=== PATIENT | female | born 1980 | race Caucasian/White ===

== ENCOUNTER 2020-02-07 11:02 | Outpatient (RCR) | payer BC, SELFPAY ==
[2020-01-03 13:22] VITALS: BP 126/83; PULSE 94
[2020-01-10 11:27] VITALS: BP 119/80
[2020-01-17 13:51] VITALS: BP 119/86; PULSE 99
[2020-01-24 11:55] VITALS: BP 131/89; PULSE 95
[2020-01-31 13:01] VITALS: BP 130/80; PULSE 85
[2020-02-07 13:20] VITALS: BP 132/91; PULSE 85
== END 2020-03-08 09:57 | disposition home or self-care (01) ==
LOC: ANHOBOP 11:02
PROVIDERS: Visit Provider Obstetrics & Gynecology
DX: O69.89X0 Labor and delivery complicated by other cord complications, not applicable or unspecified (principal); Z3A.33 33 weeks gestation of pregnancy; Z3A.34 34 weeks gestation of pregnancy; Z3A.35 35 weeks gestation of pregnancy; Z3A.36 36 weeks gestation of pregnancy; Z3A.37 37 weeks gestation of pregnancy; Z3A.38 38 weeks gestation of pregnancy
CPT/HCPCS: 59025

== ENCOUNTER 2020-02-10 04:50 | Inpatient (IN) | payer BC, SELFPAY ==
[2020-02-10] VITALS (93 sets, daily range): BP systolic 74–161; BP diastolic 40–114; PULSE 64–119; RESP 17; TEMP 36.7–37.3; O2SAT 98–100; BMI 37.3
[2020-02-10 05:24] LABS: Basophils Percent Auto 0.3 % (0.2-1.2); Eosinophils Absolute Auto 0.1 K/mm3 (0-0.3); Hematocrit 30.4 % (37.0-47.0); Immature Granulocyte Absolute 0.04 K/mm3 (0.00-0.031); Immature Granulocyte Percent A 0.3 % (0-0.5); Lymphocytes Absolute Auto 2.13 K/mm3 (0.9-3.2); Lymphocytes Percent Auto 18.5 % (18.3-44.2); Mean Corpuscular HGB Conc 32.9 g/dl (32-36); Mean Corpuscular Hemoglobin 28.6 pg (26-34); Mean Corpuscular Volume 86.9 fl (80-100); Mean Platelet Volume 12.5 fl (7.4-10.4); Monocytes Absolute Auto 0.7 K/mm3 (0.1-0.6); Monocytes Percent Auto 6.1 % (2.6-8.5); Neutrophils Absolute Auto 8.5 K/mm3 (1.3-6.7); Neutrophils Percent Auto 73.8 % (45.5-73.1); Platelet Count Result 198 k/mm3 (150-375); White Blood Count 11.5 K/mm3 (4.5-10.0)
--- NOTE | 2020-02-10 05:33 | PM.IMHP ---
H&P: HPI History of Present Illness Date/Time: 02/10/20 05:33 Chief complaint: Induction of Labor Narrative: Bianca Blount is a 39 year old female G Héctor P3 1 0 3 whose last menstrual period was 05/13/2019 were EDC is 11 [id number] presents at 39 weeks gestation for induction of labor. She is negative for group B strep. Her has been complicated by a 2 vessel cord. Excellent growth has been seen with no abnormalities in her testing. Review of Systems Review of Systems: All systems reviewed & are unremarkable except as noted in HPI and below PMFSH Family History Family History Father Coronary stent patent Mother Chronic obstructive pulmonary disease Social History Social History Smoking status: Former smoker Substance use: never Spiritual care concerns: No Meds Home Medications and Allergies Home Medications Medication Instructions Recorded Confirmed Type prenat.vits,jarrod,[id number] 1 tablet PO DAILY 02/07/20 02/07/20 History [ #2] Allergies Allergy/AdvReac Type Severity Reaction Status Date / Time codeine AdvReac Unknown N&V Verified 02/07/20 11:36 Exam Const: General: no acute distress Eyes: General: appearance normal, both eyes and all related structures Neck: Neck: supple and no JVD Thyroid: thyroid normal Resp: Effort & Inspection: normal respiratory effort Auscultation: clear to auscultation bilaterally Cardio: Rate: regular rate Rhythm: regular rhythm GI: Inspection: non-distended GI Palp: Yes Soft to palpation, No Tenderness to palpation present (GI) and No Guarding due to palpation present (GI) Auscultation: normal bowel sounds : External Female Exam: normal external appearance Speculum Exam - Vagina: normal appearance of the vagina Speculum Exam - Cervix: normal appearance of the cervix ( Cervix 2/50/2. Attempted AROM no fluid. FHTs were reassuring) Skin: General skin exam: no rashes or lesions noted Extrem: General: normal to inspection and no edema Psych: Mental Status: mental status grossly normal Affect: normal affect H&P: Results Labs Labs: Short CBC 02/10/20 Range/Units 05:14 WBC 11.5 H (4.5-10.0) K/mm3 Hgb 10.0 L (12.0-15.0) g/dL Hct 30.4 L (37.0-47.0) % Plt Count 198 (150-375) k/mm3 Assessment and Plan Additional Plan impression: Term with 2 vessel cord Plan: Medical induction of labor. Spontaneous vaginal delivery is expected. She has an epidural candidate
[2020-02-10] MEDS: LACTATED RINGERS 1,000 ML 125 ML IV CONT ×2 (05:45→12:09)
[2020-02-10] MEDS: OXYTOCIN 30 UNITS/NS 500 ML 30 UNITS/500 ML BAG IV CONT (05:45)
--- NOTE | 2020-02-10 06:15 | LDADM ---
This patient, Bianca Blount, was admitted to Labor/Delivery/Recovery 107 on 02/10/20 at 04:50. Plans for labor, pain management and were discussed with patient. Patient/family oriented to hospital policies and general routines including ID bracelet, bed and alarms, visiting hours, pain management, procedures, bathroom and other care routines, personal items, smoking policy, room service/diet and guest tray routines, security routines, and visiting hours. Patient/Family are encouraged to report perceived risks to care and to ask questions if they do not understand what they are told or what they should do. See OBIX for further documentation.
--- NOTE | 2020-02-10 07:46 | WPDOBADMIT ---
Obstetrics - Admit Note Admission Note: record reviewed. No pertinent additions to the history and/or any subsequent changes in the physical findings that are not consistent with the expected course of the were found. Additions to the history and/or subsequent changes in the physical findings follow. None. cx /-1 fhts ok arom clear
[2020-02-10 09:50] LABS: Rapid Plasma Reagin Non-Reactive (NonReactive)
--- NOTE | 2020-02-10 12:08 | P.PNOB_ITS ---
OB - PN: Subj Subjective Date/time seen: 02/10/20 12:08 cx 5/80/-1 fhts ok get epidural OB - PN: Obj Data Labs CBC & Chem 7: 02/10/20 05:14 Labs: Laboratory Results - last 24 hr 02/10/20 02/10/20 02/10/20 05:14 05:14 05:14 WBC 11.5 H RBC 3.50 L Hgb 10.0 L Hct 30.4 L MCV 86.9 MCH 28.6 MCHC 32.9 RDW 14.0 Plt Count 198 MPV 12.5 H Immature Gran % (Auto) 0.3 Neut % (Auto) 73.8 H Lymph % (Auto) 18.5 [place] % (Auto) 6.1 Eos % (Auto) 1.0 Baso % (Auto) 0.3 Lymph # (Auto) 2.13 [place] # (Auto) 0.7 H Eos # (Auto) 0.1 Baso # (Auto) 0.0 Abs Immat Gran (auto) 0.04 H Absolute Neuts (auto) 8.5 H Absolute Nucleated RBC 0.0 Nucleated RBC % 0.0 RPR Non-reactive Blood Type A Positive Antibody Screen Negative OB - PN A/P Time Spent With Patient Time: Total time spent is greater than 50% in coordination of care (as docume nted) at patient's floor/unit and/or counseling patient:
--- NOTE | 2020-02-10 12:32 | WPDANESEPP ---
Anes - Eval Pre Procedure Procedure: Labor Epidural Date/Time: 02/10/20 12:32 Surgeon: Kimberley Preop Diagnosis: Labor Pain Pre Op Diagnosis: Induction of Labor Patient Data Age: 39 Gender: F Height: 5 ft 7 in Weight: 108 kg Last Vital Signs Temp 36.8 C 02/10/20 11:30 Pulse 88 02/10/20 12:30 BP 127/78 02/10/20 12:30 Pulse Ox 100 02/10/20 12:29 Allergies Allergy/AdvReac Type Severity Reaction Status Date / Time codeine AdvReac Unknown N&V Verified 02/07/20 11:36 Home Medications Medication Instructions Recorded Confirmed Type prenat.vits,jarrod,[id number] 1 tablet PO DAILY 02/07/20 02/07/20 History [ #2] Laboratory Tests 02/10/20 02/10/20 02/10/20 05:14 05:14 05:14 WBC 11.5 K/mm3 H K/mm3 (4.5-10.0) RBC 3.50 M/mm3 L M/mm3 (4.2-5.4) Hgb 10.0 g/dL L g/dL (12.0-15.0) Hct 30.4 % L % (37.0-47.0) MCV 86.9 fl fl (80-100) MCH 28.6 pg pg (26-34) MCHC 32.9 g/dl g/dl (32-36) RDW 14.0 % % (11.5-14.5) Plt Count 198 k/mm3 k/mm3 (150-375) MPV 12.5 fl H fl (7.4-10.4) Immature Gran % (Auto) 0.3 % % (0-0.5) Neut % (Auto) 73.8 % H % (45.5-73.1) Lymph % (Auto) 18.5 % % (18.3-44.2) [place] % (Auto) 6.1 % % (2.6-8.5) Eos % (Auto) 1.0 % % (0-4.4) Baso % (Auto) 0.3 % % (0.2-1.2) Lymph # (Auto) 2.13 K/mm3 K/mm3 (0.9-3.2) [place] # (Auto) 0.7 K/mm3 H K/mm3 (0.1-0.6) Eos # (Auto) 0.1 K/mm3 K/mm3 (0-0.3) Baso # (Auto) 0.0 K/mm3 K/mm3 (0.0-0.1) Abs Immat Gran (auto) 0.04 K/mm3 H K/mm3 (0.00-0.031) Absolute Neuts (auto) 8.5 K/mm3 H K/mm3 (1.3-6.7) Absolute Nucleated RBC 0.0 K/mm3 K/mm3 (0.0-0.012) Nucleated RBC % 0.0 % % (0.0-0.2) RPR Non-reactive (NonReactive) Blood Type A Positive Antibody Screen Negative : gestational age ([place] 02/17/20, ) Patient hx anesthesia problems: none Family hx anesthesia problems: none [facility] Family History Family History Father Coronary stent patent Mother Chronic obstructive pulmonary disease Social History Social History Smoking status: Former smoker Substance use: never Spiritual care concerns: No Exam Day of Procedure 02/10/20 12:32
--- NOTE | 2020-02-10 15:43 | PM.OBPRVD ---
OB - Delivery Note Procedure Delivery date: 02/10/20 Intrapartal events: None Induction method: AROM Delivery augmentation: pitocin Delivery monitor: external FHT Route of delivery: Episiotomy description: None Laceration Description: None Specimen: No Estimated blood loss (mL): 57 [place] Baby Date of : 02/10/20 Time of : 15:35 Weeks of gestation at delivery: 39 Infant gender: Female presentation: vertex position: Right Occiput Anterior Placenta delivery description: Spontaneous cord vessel description: 3 Vessels, Nuchal Cord and True Knot score one minute: 8 score five minutes: 9
[2020-02-10] MEDS: OXYTOCIN 30 UNITS/NS 500 ML 30 UNITS/500 ML BAG 125 UNITS IV CONT (16:00)
[2020-02-10] MEDS: IBUPROFEN 600 MG TABLET PO (16:44)
--- NOTE | 2020-02-10 18:42 | OBPPTRN ---
Patient transferred to post room #290 via wheelchair with in crib. Support person present. Oriented to unit, room, information board, rooming in, admission packet and security measures. Patient verbalizes understanding.
[2020-02-11] MEDS: IBUPROFEN 600 MG TABLET PO ×2 (04:27→12:57)
[2020-02-11 06:08] LABS: Hematocrit 30.8 % (37.0-47.0); Hemoglobin 9.9 g/dL (12.0-15.0)
--- NOTE | 2020-02-11 06:58 | P.DS_ITS ---
DS: Admitting Diagnosis Admitting Diagnosis Admitting Diagnosis: Induction of Labor Term DS: Summary Time Spent with Patient Time attestation: Total time spent providing and/or coordinating discharge ser vices: patient was admitted for induction of labor. She underwent spontaneous vaginal delivery. Her hospital course was unremarkable. She remained afebrile. She was up, 40 [place] difficulty, passing gas, ambulating, and general without complaints. Exam Const: General: no acute distress Eyes: General: appearance normal, both eyes and all related structures Neck: Neck: supple and no JVD Thyroid: thyroid normal Resp: Effort & Inspection: normal respiratory effort Auscultation: clear to auscultation bilaterally Cardio: Rate: regular rate Rhythm: regular rhythm GI: Inspection: non-distended GI Palp: Yes Soft to palpation, No Tenderness to palpation present (GI) and No Guarding due to palpation present (GI) Auscultation: normal bowel sounds : General: Yes bladder normal to palpation External Female Exam: normal external appearance Speculum Exam - Vagina: normal vaginal discharge and No vaginal bleeding Speculum Exam - Cervix: nontender Bimanual exam- vagina & uterus: bladder normal to palpation and No Cervical tenderness present OB/external & speculum: No vaginal bleeding Skin: General skin exam: no rashes or lesions noted Extrem: General: normal to inspection and no edema Psych: Mental Status: mental status grossly normal Affect: normal affect DS: Data Data Completed and Pending Labs on day of discharge: Labs from last 24 hours 02/11/20 02/10/20 05:04 05:14 Hgb 9.9 L Hct 30.8 L RPR Non-reactive Discharge Plan Discharge Attending physician on discharge: Arvin Zarate Discharging Clinician: Arvin Zarate Patient Disposition: Home, Self-Care Activity: may shower, no straining, may drive after 2 weeks and pelvic rest Diet: heart healthy Patient Instructions: Antibiotic Form Stand Alone Forms: General Discharge Information Follow-up/Referrals: Arvin Zarate MD [Physician] - Discharge Medications: Continued #2 Tablet 1 tablet PO DAILY RF: 0 Date of admission: 02/10/20 04:50 Primary Care Provider: PHYSICIAN,[employer]ING [employer] SUPERINTENDENT Admitting Provider: Arvin Zarate Attending physician on admission: Arvin Zarate
--- NOTE | 2020-02-11 07:02 | PM.OBPNVD ---
OB - PN: Subj Subjective Date/time seen: 02/11/20 07:02 Patient comments: no complaints and pain well controlled baby status: doing well and nursing well OB - PN: Obj Data Labs CBC & Chem 7: 02/11/20 05:04 Labs: Laboratory Results - last 24 hr 02/10/20 02/11/20 05:14 05:04 Hgb 9.9 L Hct 30.8 L RPR Non-reactive OB - PN A/P Plan day: 1 Plan: routine care, discharge home and follow up 6 weeks Time Spent With Patient Time: Total time spent is greater than 50% in coordination of care (as documented) at patient's floor/unit and/or counseling patient: Time with patient: less than 15 minutes Review of Systems Review of Systems: All systems reviewed & are unremarkable except as noted in HPI and below Exam Const: General: no acute distress Eyes: General: appearance normal, both eyes and all related structures Neck: Neck: supple and no JVD Thyroid: thyroid normal Resp: Effort & Inspection: normal respiratory effort Auscultation: clear to auscultation bilaterally Cardio: Rate: regular rate Rhythm: regular rhythm GI: Inspection: non-distended GI Palp: Yes Soft to palpation, No Tenderness to palpation present (GI) and No Guarding due to palpation present (GI) Auscultation: normal bowel sounds : General: Yes bladder normal to palpation External Female Exam: normal external appearance Speculum Exam - Vagina: normal vaginal discharge and No vaginal bleeding Speculum Exam - Cervix: nontender Bimanual exam- vagina & uterus: bladder normal to palpation and No Cervical tenderness present OB/external & speculum: No vaginal bleeding Skin: General skin exam: no rashes or lesions noted Extrem: General: normal to inspection and no edema Psych: Mental Status: mental status grossly normal Affect: normal affect
[2020-02-11 08:00] VITALS: BP 136/89; PULSE 90; RESP 18; TEMP 36.7; O2SAT 99
[2020-02-11] MEDS: POLYSACCHARIDE IRON COMPLEX 150 MG CAPSULE PO (12:57)
[2020-02-11] MEDS: DOCUSATE SODIUM 100 MG CAPSULE PO (12:57)
[2020-02-14 09:21] VITALS: BP 150/85; PULSE 78; RESP 16; TEMP 36.9; O2SAT 100
== END 2020-02-11 17:07 | disposition home or self-care (01) | DRG 807 ==
LOC: ANHLDR 04:59 → ANHOB2 18:45
PROVIDERS: Admitting Provider Obstetrics & Gynecology; Visit Provider Obstetrics & Gynecology
DX: O69.2XX0 Labor and delivery complicated by other cord entanglement, with compression, not applicable or unspecified (principal); Z37.0 Single live birth; Z3A.39 39 weeks gestation of pregnancy; Z87.891 Personal history of nicotine dependence
CPT/HCPCS: 36415; 85014; 85018; 85025; 86592; 86850; 86900; 86901; A9270; J2590; J2795; J7120